=== PATIENT | female | born 1935 | race Caucasian/White ===

== ENCOUNTER 2019-11-08 14:12 | Emergency (ER) | payer MEDICARE, OTHER ==
[~2019-11-08] VITALS: Ht 162.6 cm; Wt 70.0 kg
--- NOTE | 2019-11-08 15:00 | NUR ---
SEE TRIAGE. ON ARRIVAL, PT PLACED ON ALL ROOM MONITORING, CHANGED INTO GOWN. EMESIS ON SHIRT AND PANTS. PT PLEASANT, ANSWERS "I DON'T KNOW" TO MOST QUESTIONS. UNKNOWN BASELINE. PER NABEEL, FAMILY MEMBER ON WAY HERE. PT CALM INITIALLY, THEN OBSERVED OOB, WALKING IN ROOM AND REMOVING ALL MONITORING. PT THEN TOOK OFF GOWN, UNDERPANTS, PULLED IV OUT. ALL ATTEMPTS OF REORIENTING AND DIVERSION UNSUCCESSFUL. PT STATES "I WANT TO GO HOME". PT HITTING OUT AT [facility] DOOR, SHAKING BED RAILS, AND HITTING OUT AT THIS RN. TITLE INVESTIGATOR INFORMED, SITTER OBTAINED TO SIT OUTSIDE ROOM. PT CONTINUES TO PACE AND TRY TO GET OUT OF ROOM.
--- NOTE | 2019-11-08 15:59 | NUR ---
PT BEHAVIOR PERSISTING, ERP IN TO SEE PT. SOFT WRIST RESTRAINTS TO BUE TO KEEP PT SAFE, MED GIVEN PER ERP ORDER. SITTER AT DOORWAY FOR CLOSE OBS. COVID SWAB COMPLETED AND WALKED TO LAB.
--- NOTE | 2019-11-08 16:28 | NUR ---
PT SLEEPING, NAD. SITTER AT DOORWAY. LABS ORDERED BY DR LO.
[2019-11-08 16:50] LABS: BASOPHILS # (AUTO) 0.05 x10^3/uL (0-0.1); BASOPHILS % (AUTO) 0 % (0-1); EOSINOPHILS # (AUTO) 0.07 x10^3/uL (0-0.4); EOSINOPHILS % (AUTO) 1 % (1-7); LYMPHOCYTES # (AUTO) 1.21 x10^3/uL (1-3.4); LYMPHOCYTES % (AUTO) 10 % (22-44); MD NO; MEAN CORPUSCULAR HEMOGLOBIN 30.5 pg (27.0-34.8); MEAN CORPUSCULAR HGB CONC 33.2 g/dL (32.4-35.8); MEAN CORPUSCULAR VOLUME 91.8 fL (80-100); MEAN PLATELET VOLUME 6.9 fL (7.4-10.4); MONOCYTES # (AUTO) 0.48 x10^3/uL (0.2-0.8); MONOCYTES % (AUTO) 4 % (2-9); NEUTROPHILS # (AUTO) 10.11 x10^3/uL (1.8-6.8); NEUTROPHILS % (AUTO) 85 % (42-75); PLATELET COUNT 308 x10^3/uL (130-400); RED BLOOD COUNT 4.46 x10^6/uL (3.82-5.3); RED CELL DISTRIBUTION WIDTH 13.1 % (9.6-15.2)
[2019-11-08 17:01] LABS: ALBUMIN 3.4 g/dL (3.4-5.0); ANION GAP 5 mmol/L (5-15); CALCIUM 9.5 mg/dL (8.5-10.1); CHLORIDE 106 mmol/L (98-107); CREATININE 0.76 mg/dL (0.55-1.02)
--- NOTE | 2019-11-08 17:13 | NUR ---
LAB RESULTS BACK, PT FOR RECHECK. SOFT RESTRAINTS REMOVED, SITTER AT DOORWAY.
--- NOTE | 2019-11-08 17:16 | NUR ---
DAUGHTER'S NUMBER BHARGAV [phone]
--- NOTE | 2019-11-08 17:38 | NUR ---
REPORT TO [facility]. NO TRANSPORT AVAIL THROUGH [facility], PT WILL NEED [facility] TRANSPORT HOME.
--- NOTE | 2019-11-08 17:52 | NUR ---
DAUGHTER CALLED, UPDATED ON RESULTS AND DISCHARGE BACK TO [facility].
[2019-11-08 20:00] VITALS: BP 102/62
== END 2019-11-08 20:05 | disposition home or self-care (01) ==
LOC: ED 19:00
DX: F03.90 Unspecified dementia, unspecified severity, without behavioral disturbance, psychotic disturbance, mood disturbance, and anxiety (principal); R55 Syncope and collapse; Z11.59 Encounter for screening for other viral diseases; F43.0 Acute stress reaction
CPT/HCPCS: 36415; 80048; 82040; 85025; 87635; 99283